=== PATIENT | female | born 1990 | race Hispanic/Latino ===

== ENCOUNTER 2018-10-26 21:12 | Emergency (ER) | payer MEDICAID, OTHER ==
[~2018-10-26 21:12] MED LIST: NO MEDS
[2018-10-26] MEDS ORDERED: AMOXICILLIN/POTASSIUM CLAV 875-125 TABLET PO ONE (22:15)
[2018-10-26] MEDS ORDERED: TETANUS/DIPHTHERIA TOXOID [ADULT] 0.5 ML VIAL IM ONE (22:15)
== END 2018-10-26 23:11 | disposition home or self-care (01) ==
LOC: EDH 21:12
DX: S61.257A Open bite of left little finger without damage to nail, initial encounter (principal); Y04.1XXA Assault by human bite, initial encounter; Y93.89 Activity, other specified; Y92.89 Other specified places as the place of occurrence of the external cause; Y99.8 Other external cause status
CPT/HCPCS: 73140; 90471; 90714